=== PATIENT | male | born 1930 | race Caucasian/White ===

== ENCOUNTER → 2017-09-06 | Outpatient (CLI) | payer MEDICARE ==
[~2017-09-06] MED LIST: ADULT LOW DOSE81 MG PO; ALDACTONE50 MG PO; ASPIR 8181 MG PO; AUGMENTIN 875875 MG PO; AZITHROMYCIN 2250 MG PO; B 12 PO; CARVEDILOL12.5 MG PO; CARVEDILOL6.25 MG; CEFDINIR300 MG PO; CIPRO500 MG PO; COZAAR 25 MG TA25 M2 PO; COZAAR 50 MG TA50 M2 PO; DUONEB 2.5-0.5 M3 ML INH; ELIQUIS2.5 MG PO; ELIQUIS5 MG PO; FLOMAX0.4 MG PO; IRON325 PO; LASIX 20 MG TAB20 MG PO; METAFOLBIC TAB1 EACH PO; MIRTAZAPINE7.5 MG PO; NOHOMEMEDICATIONS; NORVASC10 MG PO; NORVASC5 MG PO; POTASSIUM20 PO; PROTONIX40 M1 PO; TOPROL XL100 MG PO; TOPROL XL50 MG PO
== END ==
LOC: M.ULTRA 10:59
DX: I25.10 Atherosclerotic heart disease of native coronary artery without angina pectoris (principal); I65.23 Occlusion and stenosis of bilateral carotid arteries; I13.0 Hypertensive heart and chronic kidney disease with heart failure and stage 1 through stage 4 chronic kidney disease, or unspecified chronic kidney disease; N18.3 Chronic kidney disease, stage 3 (moderate); E87.6 Hypokalemia; F03.90 Unspecified dementia, unspecified severity, without behavioral disturbance, psychotic disturbance, mood disturbance, and anxiety; I50.22 Chronic systolic (congestive) heart failure; K21.9 Gastro-esophageal reflux disease without esophagitis; K92.2 Gastrointestinal hemorrhage, unspecified; I48.91 Unspecified atrial fibrillation; I25.5 Ischemic cardiomyopathy; Z90.49 Acquired absence of other specified parts of digestive tract; Z87.891 Personal history of nicotine dependence; Z98.890 Other specified postprocedural states

== ENCOUNTER 2018-04-15 19:47 | Inpatient (IN) | payer OTHER ==
[~2018-04-15] VITALS: Ht 182.9 cm; Wt 76.7 kg
[~2018-04-15 19:47] MED LIST changes: -AZITHROMYCIN 2250 MG PO; -CEFDINIR300 MG PO; -FLOMAX0.4 MG PO; -METAFOLBIC TAB1 EACH PO; -TOPROL XL100 MG PO
[2018-04-15 20:07] VITALS: BP 165/86
[2018-04-15 20:37] LABS: ABSOLUTE BASOPHILS 0.1 thou/uL (0.0-0.2); ABSOLUTE EOSINOPHILS 0.2 thou/uL (0.0-0.7); ABSOLUTE LYMPHOCYTES 0.7 thou/uL (0.8-5.3); ABSOLUTE MONOCYTES 0.7 thou/uL (0.0-1.2); ABSOLUTE NEUTROPHILS 4.9 thou/uL (1.6-8.1); BASOPHILS 1.2 %; EOSINOPHILS 3.3 %; HEMATOCRIT 31.6 % (42.0-52.0); HEMOGLOBIN 9.4 gm/dL (14.0-18.0); LYMPHOCYTES 10.4 %; MCHC 29.9 g/dL (28.0-37.0); MCV 67.1 fL (80.0-100.0); MONOCYTES 11.3 %; MPV 8.3 fl. (7.2-11.1); NUCLEATED RBCS 0 /100WBC; PLATELET COUNT* 222 thou/uL (150-400); POLYS 73.8 %; RBC 4.71 mil/uL (4.50-6.00); RDW-CV 18.1 % (10.5-14.5); WBC 6.6 thou/uL (4.0-11.0)
[2018-04-15 20:42] LABS: CALCIUM 8.4 mg/dL (8.5-10.1); CREATININE 1.8 mg/dL (0.6-1.3); POTASSIUM 3.1 mmol/L (3.5-5.1)
[2018-04-15 20:57] LABS: ALBUMIN 3.8 g/dL (3.4-5.0); TOTAL BILIRUBIN 0.6 mg/dL (<0.1-1.0); TOTAL PROTEIN 7.8 g/dL (6.4-8.2)
[2018-04-15 21:52] LABS: URINE BILIRUBIN NEGATIVE (Negative); URINE BLOOD NEGATIVE (Negative); URINE CLARITY CLEAR; URINE COLOR YELLOW; URINE GLUCOSE-RANDOM NEGATIVE (Negative); URINE KETONES NEGATIVE (Negative); URINE NITRITE-REFLEX NEGATIVE (Negative); URINE PROTEIN TRACE (Negative); URINE UROBILINOGEN 0.2 E.U./dl (0.2-1.0)
[2018-04-15 21:55] LABS: ANISOCYTOSIS 1+; HYPOCHROMASIA 2+; MICROCYTES 3+; OVALOCYTES Occasional
[2018-04-15 21:56] LABS: URINE LEUKOCYTES-REFLEX 2+ (Negative)
[2018-04-15 21:56] LABS: PLATELET ESTIMATE ADEQUATE
[2018-04-15 22:08] LABS: HYALINE CASTS 0-3 Few /LPF (None Seen); MUCUS 4-6 Moderate strn/LPF (None Seen); SQUAMOUS 0-3 Few /LPF (0-3)
[2018-04-15 22:09] LABS: CRYSTALS None Seen /LPF (None Seen); URINE RBC 0-2 Rare /HPF (0-2); URINE WBC-REFLEX 6-15 Few /HPF (0-5)
[2018-04-15 23:24] VITALS: BP 150/88
[2018-04-15 23:43] VITALS: BP 172/79
[2018-04-16 04:00] VITALS: BP 168/87
[2018-04-16 05:06] LABS: HEMATOCRIT 28.1 % (42.0-52.0); HEMOGLOBIN 8.5 gm/dL (14.0-18.0); MCH 20.3 pg (26.0-34.0); MCHC 30.1 g/dL (28.0-37.0); MCV 67.3 fL (80.0-100.0); MPV 8.9 fl. (7.2-11.1); RBC 4.17 mil/uL (4.50-6.00); RDW-CV 18.2 % (10.5-14.5)
[2018-04-16 05:21] LABS: ALBUMIN 3.4 g/dL (3.4-5.0); CREATININE 1.6 mg/dL (0.6-1.3); POTASSIUM 3.7 mmol/L (3.5-5.1); TOTAL BILIRUBIN 0.6 mg/dL (<0.1-1.0); TOTAL PROTEIN 6.6 g/dL (6.4-8.2)
[2018-04-16 08:00] VITALS: BP 181/92
[2018-04-16 11:59] VITALS: BP 158/85
[2018-04-16 16:00] VITALS: BP 171/87
[2018-04-16 20:00] VITALS: BP 156/83
[2018-04-17] VITALS: BP 137/98; BP 140/61
[2018-04-17 00:48] LABS: % SATURATION 4 % (20-39); IRON 15 ug/dL (50-175)
[2018-04-17 07:54] VITALS: BP 161/102
[2018-04-17 10:49] VITALS: BP 158/88; BP 161/102
--- NOTE | 2018-04-17 11:40 | EKG ---
[place] [address] ELECTROCARDIOGRAM REPORT Name: RENEE LAMAS Room: [address] ADM IN M.R.#: [id number] Admission: 04/15/18 Attend Phys: Maricruz Hawkins Discharge: Date of : 34 Report #: [id number] THIS REPORT FOR: //name// [facility] Test Date: 2018-04-17 Test Time: 08:20:49 Pat Name: RENEE LAMAS Department: Room: [address] Gender: M Rn Clinical Review: : 1930 Requested By: Michael Durand Order Number: [id number] Reading MD: Win Cordova Measurements Intervals [place] Rate: 91 P: RI: QRS: 74 QRSD: 98 T: 85 QT: 380 QTc: 468 Interpretive Statements Atrial fibrillation Nonspecific T abnormalities, lateral leads Compared to ECG 08/23/2017 04:51:06 Ventricular premature complex(es) no longer present Left ventricular hypertrophy no longer present Prolonged QT interval no longer present Electronically Signed On 04-17-2018 11:40:11 CDT by Win Cordova [email or web address] <ELECTRONICALLY SIGNED> By: Win Cordova MD, [facility] 04/17/18 1140 9 Win Cordova MD, [facility] /EPI
[2018-04-17 14:30] VITALS: BP 164/79
[2018-04-17 16:00] VITALS: BP 165/85
[2018-04-17 20:00] VITALS: BP 165/93
[2018-04-18] VITALS: BP 155/65
[2018-04-18 04:00] VITALS: BP 167/72
[2018-04-18 09:00] VITALS: BP 130/85
[2018-04-18 11:53] VITALS: BP 138/78
[2018-04-18 15:16] VITALS: BP 167/77
[2018-04-18 20:00] VITALS: BP 130/73
[2018-04-19] VITALS: BP 139/67
[2018-04-19 04:00] VITALS: BP 159/82
[2018-04-19 08:00] VITALS: BP 161/88
[2018-04-19 08:43] LABS: HEMATOCRIT 31.8 % (42.0-52.0); HEMOGLOBIN 9.6 gm/dL (14.0-18.0); MCH 20.5 pg (26.0-34.0); MCHC 30.2 g/dL (28.0-37.0); MCV 67.8 fL (80.0-100.0); MPV 8.7 fl. (7.2-11.1); RBC 4.69 mil/uL (4.50-6.00); RDW-CV 18.8 % (10.5-14.5); WBC 5.3 thou/uL (4.0-11.0)
[2018-04-19 08:54] LABS: CALCIUM 8.3 mg/dL (8.5-10.1); CREATININE 1.4 mg/dL (0.6-1.3); MAGNESIUM 1.8 mg/dL (1.8-2.4); PHOSPHORUS* 2.3 mg/dL (2.5-4.9); POTASSIUM 3.9 mmol/L (3.5-5.1)
[2018-04-19 11:51] VITALS: BP 103/70
[2018-04-19 16:00] VITALS: BP 104/66
[2018-04-19 20:00] VITALS: BP 166/89
[2018-04-20 04:00] VITALS: BP 162/82
[2018-04-20 08:00] VITALS: BP 162/83
[2018-04-20 12:00] VITALS: BP 149/77
[2018-04-20 14:00] VITALS: BP 136/74
[2018-04-20 20:00] VITALS: BP 118/88
[2018-04-21 05:00] LABS: HEMATOCRIT 31.3 % (42.0-52.0); HEMOGLOBIN 9.5 gm/dL (14.0-18.0); MCH 20.3 pg (26.0-34.0); MCHC 30.3 g/dL (28.0-37.0); MPV 9.4 fl. (7.2-11.1); RBC 4.68 mil/uL (4.50-6.00); RDW-CV 18.7 % (10.5-14.5); WBC 6.7 thou/uL (4.0-11.0)
[2018-04-21 05:22] LABS: ALBUMIN 2.9 g/dL (3.4-5.0); CALCIUM 7.7 mg/dL (8.5-10.1); CREATININE 1.3 mg/dL (0.6-1.3); MAGNESIUM 1.8 mg/dL (1.8-2.4); POTASSIUM 3.4 mmol/L (3.5-5.1); TOTAL BILIRUBIN 0.6 mg/dL (<0.1-1.0); TOTAL PROTEIN 6.6 g/dL (6.4-8.2)
[2018-04-21 09:00] VITALS: BP 148/75
[2018-04-21 16:00] VITALS: BP 132/66
[2018-04-21 20:00] VITALS: BP 119/62
[2018-04-22 05:31] LABS: HEMATOCRIT 32.6 % (42.0-52.0); MCH 20.2 pg (26.0-34.0); MCHC 30.6 g/dL (28.0-37.0); MCV 66.1 fL (80.0-100.0); MPV 9.2 fl. (7.2-11.1); RBC 4.93 mil/uL (4.50-6.00); RDW-CV 18.9 % (10.5-14.5); WBC 6.2 thou/uL (4.0-11.0)
[2018-04-22 05:57] LABS: CALCIUM 8.2 mg/dL (8.5-10.1); CREATININE 1.4 mg/dL (0.6-1.3); MAGNESIUM 2.3 mg/dL (1.8-2.4); PHOSPHORUS* 3.1 mg/dL (2.5-4.9); POTASSIUM 3.9 mmol/L (3.5-5.1)
[2018-04-22 07:30] VITALS: BP 155/97
--- NOTE | 2018-04-22 07:55 | PATH ---
[address] [address] PATHOLOGY RPT PROCEDURE Name: RENEE LAMAS Room: [address] IN M.R.#: [id number] Admission: 04/15/18 Date of : 34 Discharge: Report #: [id number] Path Case #: [id number] [facility] Accession Number: [id number] . 01 Material submitted: . PART A: DUODENAL BIOPSY PART B: TRANSVERSE COLON MASS . 01 Clinical history: . Left lower quadrant pain . 02 Diagnosis: A. Duodenal biopsy: - Non-specific severe active duodenitis with erosion, negative for granulomas and dysplasia. . B. TRANSVERSE COLON MASS: - COLONIC ADENOCARCINOMA, MODERATELY DIFFERENTIATED. SEE COMMENT. LBQ/04/18/2018 . 02 Comment: Specimen B reviewed with Dr. Marielos Paulino who agrees with the diagnosis. Dr. Durand notified at approximately 1540 on 04/18/2018. (TAHIR/db; 04/18/18) . 02 Electronically signed: . Phill Duran MD, Pathologist NPI- [id number] . 01 Gross description: . A. Received in formalin labeled "Ra Renee, duodenal BX," are 2 segments of osorio soft tissue measuring 0.9 x 0.3 x 0.2 cm in aggregate dimensions and ranging from 0.4 to 0.5 cm in maximum dimension. The specimen is submitted entirely in cassette A1. . B. Received in formalin labeled "Ra Renee, transverse colon BX," are 3 segments of osorio soft tissue measuring 0.9 x 0.6 x 0.2 cm in aggregate dimensions and ranging from 0.3 to 0.5 cm in maximum dimension. The specimen is submitted entirely in cassette B1. (TSD; 04/17/2018) TOB/TOB . 02 Pathologist provided ICD-10: C18.4, L57.0, K26.9 . 02 CPT . 944931, 038794 Performed at: 01 [place] [address] PATHOLOGY RPT PROCEDURE Name: RENEE LAMAS Room: [address] IN M.R.#: [id number] Admission: 04/15/18 Date of : 32 Discharge: Report #: [id number] Path Case #: [id number] [facility], [place], [place] [id number] MD Romain Beach MD Phone: [phone] Performed at: 02 [facility] [address], [place], [place] [id number] MD Phill Duran MD Phone: [phone]
[2018-04-22 21:28] VITALS: BP 159/65
[2018-04-23] VITALS (7 sets, daily range): BP systolic 110–168; BP diastolic 52–95
[2018-04-23 04:18] LABS: HEMATOCRIT 33.2 % (42.0-52.0); HEMOGLOBIN 9.9 gm/dL (14.0-18.0); MCH 20.2 pg (26.0-34.0); MCHC 29.9 g/dL (28.0-37.0); MCV 67.3 fL (80.0-100.0); MPV 9.4 fl. (7.2-11.1); NUCLEATED RBCS 0 /100WBC; PLATELET COUNT* 199 thou/uL (150-400); RBC 4.93 mil/uL (4.50-6.00); RDW-CV 18.6 % (10.5-14.5); WBC 9.2 thou/uL (4.0-11.0)
[2018-04-23 04:36] LABS: CALCIUM 8.2 mg/dL (8.5-10.1); CREATININE 1.4 mg/dL (0.6-1.3); POTASSIUM 4.1 mmol/L (3.5-5.1)
[2018-04-23 05:57] LABS: ABSOLUTE LYMPHOCYTES 0.5 thou/uL (0.8-5.3); ABSOLUTE MONOCYTES 0.2 thou/uL (0.0-1.2); ABSOLUTE NEUTROPHILS 8.6 thou/uL (1.6-8.1); PLATELET ESTIMATE ADEQUATE
[2018-04-23 05:59] LABS: ANISOCYTOSIS 2+; HYPOCHROMASIA 1+; MICROCYTES 2+; POIKILOCYTOSIS 1+
[2018-04-24] VITALS: BP 153/83
[2018-04-24 04:00] VITALS: BP 157/66
[2018-04-24 05:37] LABS: ABSOLUTE EOSINOPHILS 0.1 thou/uL (0.0-0.7); ABSOLUTE LYMPHOCYTES 0.9 thou/uL (0.8-5.3); ABSOLUTE MONOCYTES 0.9 thou/uL (0.0-1.2); ABSOLUTE NEUTROPHILS 5.4 thou/uL (1.6-8.1); BASOPHILS 0.5 %; HEMATOCRIT 29.2 % (42.0-52.0); HEMOGLOBIN 8.9 gm/dL (14.0-18.0); MCH 20.3 pg (26.0-34.0); MCHC 30.4 g/dL (28.0-37.0); MCV 66.9 fL (80.0-100.0); MONOCYTES 11.9 %; MPV 9.1 fl. (7.2-11.1); NUCLEATED RBCS 0 /100WBC; PLATELET COUNT* 191 thou/uL (150-400); POLYS 74.6 %; RBC 4.37 mil/uL (4.50-6.00); WBC 7.3 thou/uL (4.0-11.0)
[2018-04-24 05:50] LABS: MAGNESIUM 2.2 mg/dL (1.8-2.4); PHOSPHORUS* 3.3 mg/dL (2.5-4.9)
[2018-04-24 06:04] LABS: ALBUMIN 2.6 g/dL (3.4-5.0); CREATININE 1.5 mg/dL (0.6-1.3); POTASSIUM 3.8 mmol/L (3.5-5.1); TOTAL BILIRUBIN 0.3 mg/dL (<0.1-1.0); TOTAL PROTEIN 5.8 g/dL (6.4-8.2)
[2018-04-24 08:00] VITALS: BP 146/93
[2018-04-24 12:42] VITALS: BP 117/54
[2018-04-24 15:54] VITALS: BP 120/52
[2018-04-24 20:40] VITALS: BP 112/79
[2018-04-25] VITALS: BP 151/76
[2018-04-25 04:00] VITALS: BP 151/79
[2018-04-25 07:37] LABS: HEMATOCRIT 28.9 % (42.0-52.0); HEMOGLOBIN 8.8 gm/dL (14.0-18.0); MCH 20.4 pg (26.0-34.0); MCHC 30.6 g/dL (28.0-37.0); MCV 66.8 fL (80.0-100.0); MPV 8.9 fl. (7.2-11.1); RBC 4.32 mil/uL (4.50-6.00); RDW-CV 19.1 % (10.5-14.5); WBC 5.7 thou/uL (4.0-11.0)
[2018-04-25 07:49] LABS: CALCIUM 8.1 mg/dL (8.5-10.1); CREATININE 1.5 mg/dL (0.6-1.3); PHOSPHORUS* 2.7 mg/dL (2.5-4.9); POTASSIUM 3.8 mmol/L (3.5-5.1)
[2018-04-25 08:00] VITALS: BP 134/83
[2018-04-25 13:05] VITALS: BP 126/66
[2018-04-25 16:00] VITALS: BP 128/68; BP 134/68
[2018-04-25 20:00] VITALS: BP 141/58
[2018-04-26] VITALS (7 sets, daily range): BP systolic 128–162; BP diastolic 69–99
[2018-04-26 04:49] LABS: HEMATOCRIT 27.9 % (42.0-52.0); HEMOGLOBIN 8.5 gm/dL (14.0-18.0); MCH 20.4 pg (26.0-34.0); MCHC 30.5 g/dL (28.0-37.0); MCV 66.7 fL (80.0-100.0); MPV 9.2 fl. (7.2-11.1); RBC 4.18 mil/uL (4.50-6.00); RDW-CV 19.3 % (10.5-14.5); WBC 5.7 thou/uL (4.0-11.0)
[2018-04-26 05:10] LABS: CALCIUM 7.8 mg/dL (8.5-10.1); CREATININE 1.3 mg/dL (0.6-1.3); MAGNESIUM 1.9 mg/dL (1.8-2.4); PHOSPHORUS* 2.4 mg/dL (2.5-4.9); POTASSIUM 3.9 mmol/L (3.5-5.1)
[2018-04-26 11:21] LABS: CALCIUM 8.2 mg/dL (8.5-10.1); CREATININE 1.3 mg/dL (0.6-1.3); MAGNESIUM 1.8 mg/dL (1.8-2.4)
[2018-04-27] VITALS: BP 144/82
[2018-04-27 04:00] VITALS: BP 167/77
[2018-04-27 04:21] LABS: HEMATOCRIT 28.7 % (42.0-52.0); HEMOGLOBIN 8.8 gm/dL (14.0-18.0); MCH 20.6 pg (26.0-34.0); MCHC 30.5 g/dL (28.0-37.0); MCV 67.5 fL (80.0-100.0); MPV 8.9 fl. (7.2-11.1); RBC 4.25 mil/uL (4.50-6.00); RDW-CV 19.2 % (10.5-14.5)
[2018-04-27 04:54] LABS: CREATININE 1.3 mg/dL (0.6-1.3); MAGNESIUM 1.9 mg/dL (1.8-2.4); PHOSPHORUS* 2.1 mg/dL (2.5-4.9); POTASSIUM 4.2 mmol/L (3.5-5.1)
[2018-04-27 08:00] VITALS: BP 170/94
[2018-04-27 12:00] VITALS: BP 158/88
[2018-04-27 16:00] VITALS: BP 173/97
[2018-04-27 20:00] VITALS: BP 149/86
[2018-04-28] VITALS: BP 129/70
[2018-04-28 04:00] VITALS: BP 146/67
[2018-04-28 04:51] LABS: HEMATOCRIT 30.4 % (42.0-52.0); HEMOGLOBIN 9.2 gm/dL (14.0-18.0); MCH 20.4 pg (26.0-34.0); MCHC 30.2 g/dL (28.0-37.0); MCV 67.5 fL (80.0-100.0); MPV 8.8 fl. (7.2-11.1); RBC 4.5 mil/uL (4.50-6.00); RDW-CV 19.3 % (10.5-14.5); WBC 7.1 thou/uL (4.0-11.0)
[2018-04-28 05:33] LABS: CALCIUM 8.2 mg/dL (8.5-10.1); CREATININE 1.3 mg/dL (0.6-1.3); MAGNESIUM 1.9 mg/dL (1.8-2.4); PHOSPHORUS* 2.8 mg/dL (2.5-4.9); POTASSIUM 4.3 mmol/L (3.5-5.1)
[2018-04-28 07:58] VITALS: BP 144/82
[2018-04-28 12:11] VITALS: BP 109/51
[2018-04-28 16:23] VITALS: BP 148/61
[2018-04-28 20:15] VITALS: BP 133/71
[2018-04-29] VITALS (9 sets, daily range): BP systolic 107–167; BP diastolic 58–108
[2018-04-29 05:14] LABS: HEMATOCRIT 27.1 % (42.0-52.0); HEMOGLOBIN 8.3 gm/dL (14.0-18.0); MCH 20.5 pg (26.0-34.0); MCHC 30.5 g/dL (28.0-37.0); MCV 67.1 fL (80.0-100.0); MPV 9.1 fl. (7.2-11.1); RBC 4.04 mil/uL (4.50-6.00); RDW-CV 19.1 % (10.5-14.5); WBC 5.5 thou/uL (4.0-11.0)
[2018-04-29 05:34] LABS: CALCIUM 7.9 mg/dL (8.5-10.1); CREATININE 1.4 mg/dL (0.6-1.3); MAGNESIUM 1.9 mg/dL (1.8-2.4); PHOSPHORUS* 2.6 mg/dL (2.5-4.9); POTASSIUM 4.2 mmol/L (3.5-5.1)
[2018-04-29] MEDS ORDERED: FLOMAX0.4 MG PO (14:37)
--- NOTE | 2018-04-30 16:08 | PATH ---
[address] [address] PATHOLOGY RPT PROCEDURE Name: RENEE LAMAS Room: [address] IN M.R.#: [id number] Admission: 04/15/18 Date of : 32 Discharge: 04/29/18 Report #: [id number] Path Case #: [id number] [facility] Accession Number: [id number] . 01 Material submitted: . TRANSVERSE COLON, PARTIAL OMENTECTOMY-STITCH ON PROXIMAL END . 01 Clinical history: . Colon cancer . 02 Diagnosis: Transverse colon, partial omentectomy: - ULCERATED, NEAR-CIRCUMFERENTIAL, COLONIC ADENOCARCINOMA, FORMING A MASS MEASURING 3.1 X 2.9 CM, WITH INVASION FOCALLY THROUGH MUSCULARIS PROPRIA INTO PERICOLIC FAT, WITHOUT INVOLVEMENT OF INKED SEROSAL SURFACE, WITH ALL SURGICAL MARGINS FREE OF INVOLVEMENT. - One of nine (1/9) pericolic lymph nodes with metastatic adenocarcinoma (1/9). - Benign omental fat. - Two benign colonic anastomotic rings. See comment. . (TAHIR:mmángela; 04/28/18) QLM/04/28/2018 . 02 Comment: The tumor is seen to slightly traverse the muscularis propria and extend into the pericolic fat in A5. . . SYNOPTIC DATA: . Procedure Transverse colectomy . Tumor Site Transverse colon . Tumor Size Greatest dimension (centimeters): 3.1 cm . Macroscopic Tumor Perforation Not identified . Histologic Type Adenocarcinoma . Histologic Grade G2: [place] [address] PATHOLOGY RPT PROCEDURE Name: RENEE LAMAS Room: [address] IN [facility]#: [id number] Admission: 04/15/18 Date of : 32 Discharge: 04/29/18 Report #: [id number] Path Case #: [id number] . Tumor Extension Tumor invades through the muscularis propria into pericolorectal tissue . Margins All margins are uninvolved by invasive carcinoma, high-grade dysplasia, intramucosal adenocarcinoma, and adenoma Margins examined: Proximal, distal, mesenteric + Distance of invasive carcinoma from closest margin: 2.2 cm + Specify closest margin: Distal . Treatment Effect No known presurgical therapy . . Lymphovascular Invasion Not identified . Perineural Invasion Not identified . Tumor Budding + Number of tumor buds in 1 "hotspot" field (total number in area = 0.785 mm2): 1 + Low score (0-4) . Type of Polyp in Which Invasive Carcinoma Arose: Tubular adenoma . Tumor Deposits Not identified . Regional Lymph Nodes Number of Lymph Nodes Involved: 1 Number of Lymph Nodes Examined: 9 . Pathologic Stage Classification (pTNM, AJCC 8th Edition) . Primary Tumor (pT) pT3:Tumor invades through the muscularis propria into pericolorectal tissues . Regional Lymph Nodes (pN) pN1:One to three regional lymph nodes are positive . . If MSI / MMR testing is desired, it can be subsequently requested on any of blocks A3-A7. A[address] Marielos Paulino who agrees with the diagnosis[place] [address] PATHOLOGY RPT PROCEDURE Name: RENEE LAMAS Room: [address] IN [facility]#: [id number] Admission: 04/15/18 Date of : 32 Discharge: 04/29/18 Report #: [id number] Path Case #: [id number] (TAHIR:[facility]; 04/28/18) . 02 Electronically signed: . Phill Duran MD, Pathologist NPI- [id number] . 01 Gross description: . The specimen is received in formalin, labeled "Renee Lamas, transverse colon, stitch on proximal end, omentectomy, partial" and consists of an oriented segment of intestine measuring 9.1 cm in length and 3.8 cm in diameter with a stitch designating the proximal end. Both margins are closed with radha and the pericolic fat measures up to 5.8 cm. The serosa displays a "pinched area" (1.4 x 1.2 cm) with surrounding tattoo ink. The pinched area extends 2.7 cm from the distal margin and 4.0 cm from the proximal margin and is inked black. The mesenteric margin is inked blue and the specimen is opened longitudinally to reveal a near circumferential, pink-osorio, and ulcerated/fungating mass with rolled edges (3.1 x 2.9 cm) which is located 2.6 cm away from the proximal margin and 2.2 cm away from the distal margin. The lumen measures up to 3.0 cm and narrows to less than 1 cm at the mass. Sectioning reveals the mass obliterates the muscular wall and shows possible extension into the pericolic fat to a maximum depth of 0.2 cm and extends 5.6 cm from the mesenteric margin. The mucosa proximal to mass is flattened with reduced folds while the mucosa distal the mass is slightly flattened with unremarkable transverse folds. No additional masses or lesions are identified. The pericolic fat is sectioned and placed in clearing solution to reveal multiple lymph node candidates ranging from 0.2 x 0.2 cm to 0.9 x 0.5 cm. . Also received in the container is omentum (25.0 x 11.3 x 1.4 cm) and sectioning reveals no nodules or mass lesions. Also received are 2 segments of colonic mucosa (anastomotic rings) measuring 4.3 x 1.3 x 0.8 cm and 1.5 x 1.1 x 0.5 cm with the smaller ring containing multiple radha. Sections are submitted as follows: . A1: Proximal margin A2: Distal margin A3-A4: Mass in relation to the "pinched serosa" A5: Mass, greatest depth of invasion A6-A7: Additional retail field representative mass A8: Mesenteric margin, perpendicular A9: Mucosa proximal to mass A10: Mucosa distal to mass A11: Omentum A12: Additional mucosa/anastomotic rings A13: 2 lymph nodes candidates bisected, one inked black A14: 2 lymph nodes candidates bisected, one inked black A15: Multiple intact lymph node candidates A16: Largest lymph node [place] [address] PATHOLOGY RPT PROCEDURE Name: RENEE LAMAS Room: [address] IN ..#: [id number] Admission: 04/15/18 Date of : 32 Discharge: 04/29/18 Report #: [id number] Path Case #: [id number] (SDY; 04/23/2018) . After additional microscopic examination, the fat is further examined to reveal two lymph node candidates measuring 0.5 cm and 0.6 cm. They are submitted along with vascular bundles as follows: . A17: Two lymph node candidates, one inked black and bisected A18-A22: Vascular bundles (CTY; 04/24/2018) SYU/SYU . 02 Pathologist provided ICD-10: C18.4, C77.2 . 02 CPT . 901683, 844269 Performed at: 01 [facility] [address] [facility] [facility] [address], [place] [id number] MD Romain Beach MD Phone: [phone] Performed at: 02 [facility] [place] [address], [place], [place] [id number] MD Phill Duran MD Phone: [phone]
--- NOTE | 2018-05-06 10:19 | OP ---
[address] [address] OPERATIVE REPORT Name: RENEE LAMAS Room: [address] IN .R.#: [id number] Admission: 04/15/18 Attend Phys: Maricruz Hawkins Discharge: 04/29/18 Date of : 32 Report #: [id number] THIS REPORT FOR: //name// CC: [facility] physician/PCP Osito Bellamy DICTATED BY: Bridger Cerrato DO PREOPERATIVE DIAGNOSIS: Adenocarcinoma of the transverse colon. POSTOPERATIVE DIAGNOSIS: Adenocarcinoma of the transverse colon. SURGEON: Azael Carvalho DO PRICING CLERK: Bridger Cerrato DO, PGY2 OPERATION PERFORMED: Diagnostic laparoscopy converted to laparotomy with transverse colectomy and partial omentectomy. FINDINGS: Proximal and distal tattoo from previous colonoscopy, firm mass within the mid transverse colon between the tattoo margins, minimal adhesions. ANESTHESIA TYPE: General. ESTIMATED BLOOD LOSS: 20 mL. SPECIMEN REMOVED: Transverse colon and omentum. COMPLICATIONS: None. DISPOSITION: PACU to the floor. HISTORY OF PRESENT ILLNESS: The patient is a pleasant 87-year-old male who was initially admitted after complaints of diffuse abdominal pain and diarrhea. These symptoms were similar to his prior colectomy before that time. On further workup, colonoscopy did show a malignant partially obstructing tumor in the mid transverse colon that was biopsied and tattooed. Pathology did reveal that the malignant-appearing tumor was in fact a colonic adenocarcinoma, moderately differentiated. It was discussed with the patient that the recommendation at this time would be to do a partial resection of the transverse colon to include the mass and reanastomosis. Risks and complications were discussed to include bleeding, infection, injury to surrounding structures, risk of anesthesia, risk of cancer recurrence. He acknowledged understanding and agreed to proceed with surgery. DESCRIPTION OF PROCEDURE: After consent was obtained, the patient was taken to the operating room and placed in the supine position. [place] [address] OPERATIVE REPORT Name: RENEE LAMAS Room: [address]#: [id number] Admission: 04/15/18 Attend Phys: Maricruz Hawkins Discharge: 04/29/18 Date of : 32 Report #: [id number] regimen of ciprofloxacin and Flagyl and therefore prophylactic antibiotics were not given. SCDs were applied to bilateral lower extremities. A safety belt was placed across the patient's waist. General anesthesia was then administered without any complication. The patient's feet were placed in holsters. Safety strap was placed across the patient's chest and he was secured to the table. The patient was then prepped and draped in the standard sterile fashion. Timeout was performed to confirm the patient and procedure. Initially the case started out laparoscopically. A small incision was made supraumbilically in a vertical fashion. Electrocautery was used for hemostasis and to dissect down to the level of the fascia. The fascia was scored, elevated between 2 Kochers. Two stitches of 0 Vicryl in a [id number]-er-phdpl fashion were placed on either side of the incision. A 10 mm Carmel was then inserted in the abdomen. Camera was inserted after insufflation was initiated. Intra-abdominal contents were inspected. You could see two large spots of tattoo on the antimesenteric border of the transverse colon. This led us to believe that the tumor itself was in between these 2 areas of tattoo. The tattoo was extremely mobile and redundant and it was felt that it would be easier to extend the midline incision and proceed with an open colectomy. Before this happened though, 2 more ports, one in the right lower quadrant and one in the suprapubic area were inserted under direct visualization. These were both 5 mm ports. Some intra-abdominal adhesions were taken down with the hook electrocautery. After this was done, the camera was removed from the abdomen. Insufflation was let down. The midline incision was extended along the previous colectomy incision. The transverse colon was pulled up through the incision after a wound protector was placed along the incision. Transverse colon was pulled up through the incision and the mass could be easily palpated between the two areas of tattoo. The patient was very lean and mesentery was very vascular, it was easy to see the middle colic artery traversing up to the level of the tumor. It was decided that the middle colic artery itself would need to be taken. A small incision was made in the mesentery using electrocautery. The LigaSure Impact was used to dissect up to the level of the bowel. A LICHA-80 was used to staple across the transverse colon just lateral to the mass. Another incision was made in the mesentery on the other side of the lesion with electrocautery and again this was extended up to the level of the bowel with LigaSure Impact. Another LICHA-80 load was used to staple this bowel. Segment of bowel that was removed was a roughly 10 cm. The remaining mesentery was dissected out using LigaSure Impact. Complete hemostasis was ensured. After palpating the rest of the colon, there was no more masses that could be felt. There was bleeding from both staple lines indicating good blood flow to the staple lines. At this point, attention was turned to some of the omentum as there were multiple attachments to the bowel and it was suspected that this could lead to a hernia in the future. Therefore, a partial omentectomy was performed using LigaSure Impact. Now attention was turned back to the bowel. Edges of either end of the transverse colon were grasped with an Allis clamp and a heavy curved Galo was used to make a small enterotomy on either side of the transverse colon. Allis clamps were placed on either side of the bowel and elevated. [place] [address] OPERATIVE REPORT Name: RENEE LAMAS Room: [address]#: [id number] Admission: 04/15/18 Attend Phys: Maricruz Hawkins Discharge: 04/29/18 Date of : 32 Report #: [id number] side of the transverse colon, connected, staple was fired and the anastomosis looked to be patent at that time. A TA 60 was placed across the transverse colon and fired, ensuring an adequate anastomosis. Fluid was easily passing within the bowel at this point and there was no evidence of stricture or leak. The antimesenteric part of the bowel was then closed with 2-0 Vicryl in an interrupted fashion to ensure no future internal hernia. The mesenteric side was closed with a running stitch of 2-0 Vicryl, again to ensure no hernia postoperatively. The anastomosis was then reinspected and it was fully patent. There was no evidence of leak. The area was irrigated with normal saline and at this point the supraumbilical fascia was closed with a running stitch of #1 looped PDS. Subcutaneous tissue over top was closed with a 2-0 Vicryl in a simple interrupted fashion. All skin incisions were closed with a 4-0 Monocryl. Sterile dressings were placed over top. All counts at the end of the case were correct. The patient was then awoken from anesthesia without any complication. The patient tolerated the procedure well and was transferred to PACU in stable condition with plans to return to the floor. <ELECTRONICALLY SIGNED> By: Azael Carvalho DO 05/06/18 1019 1343 1530Adam Virginia Carvalho DO /nt
== END 2018-04-29 16:58 | disposition home health service (06) | DRG 329 ==
LOC: M.ERS 19:47 → M.2W 22:57 → M.TBA-ER 22:57 → M.2W 23:07 → M.ORTHSURG 04-20 12:34 → M.2W 04-22 15:29
PROVIDERS: Emergency Medicine; Family Medicine; Internal Medicine; Internal Medicine Gastroenterology; Surgery; ADMIT Internal Medicine
PROC: 0DBL8ZX Excision of Transverse Colon, Via Natural or Artificial Opening Endoscopic, Diagnostic (ICD-10-PCS; principal; 2018-04-17)
PROC: 0DBU0ZZ Excision of Omentum, Open Approach (ICD-10-PCS; 2018-04-22)
PROC: 0DTL0ZZ Resection of Transverse Colon, Open Approach (ICD-10-PCS; 2018-04-22)
PROC: 0WJP4ZZ Inspection of Gastrointestinal Tract, Percutaneous Endoscopic Approach (ICD-10-PCS; 2018-04-22)
DX: C18.4 Malignant neoplasm of transverse colon (principal); G93.40 Encephalopathy, unspecified; A04.9 Bacterial intestinal infection, unspecified; N17.9 Acute kidney failure, unspecified; I13.0 Hypertensive heart and chronic kidney disease with heart failure and stage 1 through stage 4 chronic kidney disease, or unspecified chronic kidney disease; I48.91 Unspecified atrial fibrillation; K80.20 Calculus of gallbladder without cholecystitis without obstruction; I50.9 Heart failure, unspecified; N18.3 Chronic kidney disease, stage 3 (moderate); F03.90 Unspecified dementia, unspecified severity, without behavioral disturbance, psychotic disturbance, mood disturbance, and anxiety; D50.9 Iron deficiency anemia, unspecified; K64.8 Other hemorrhoids; D12.0 Benign neoplasm of cecum; E83.39 Other disorders of phosphorus metabolism; R33.9 Retention of urine, unspecified; E87.6 Hypokalemia; Z79.82 Long term (current) use of aspirin; Z79.899 Other long term (current) drug therapy; Z53.31 Laparoscopic surgical procedure converted to open procedure

== ENCOUNTER 2018-07-15 10:33 | Inpatient (IN) | payer OTHER ==
[~2018-07-15] VITALS: Ht 182.9 cm; Wt 61.7 kg
[~2018-07-15 10:33] MED LIST changes: +FLOMAX0.4 MG PO
[2018-07-15 10:50] VITALS: BP 150/86
[2018-07-15] MEDS ORDERED: TOPROL XL100 MG PO (10:59)
[2018-07-15 11:11] LABS: ABSOLUTE BASOPHILS 0.1 thou/uL (0.0-0.2); ABSOLUTE EOSINOPHILS 0.1 thou/uL (0.0-0.7); ABSOLUTE LYMPHOCYTES 0.6 thou/uL (0.8-5.3); ABSOLUTE MONOCYTES 0.4 thou/uL (0.0-1.2); ABSOLUTE NEUTROPHILS 3.1 thou/uL (1.6-8.1); BASOPHILS 2.3 %; EOSINOPHILS 2.7 %; HEMATOCRIT 29.1 % (42.0-52.0); HEMOGLOBIN 8.8 gm/dL (14.0-18.0); LYMPHOCYTES 13.3 %; MCH 20.5 pg (26.0-34.0); MCHC 30.1 g/dL (28.0-37.0); MCV 68.1 fL (80.0-100.0); MONOCYTES 10.3 %; MPV 8.9 fl. (7.2-11.1); NUCLEATED RBCS 0 /100WBC; PLATELET COUNT* 179 thou/uL (150-400); POLYS 71.4 %; RBC 4.27 mil/uL (4.50-6.00); RDW-CV 18.5 % (10.5-14.5); WBC 4.3 thou/uL (4.0-11.0)
[2018-07-15 11:23] LABS: ANION GAP 8 mmol/L (7-16); BUN 26 mg/dL (7-18); CALCIUM 8.7 mg/dL (8.5-10.1); CHLORIDE 102 mmol/L (98-107); CO2 34 mmol/L (21-32); CREATININE 1.8 mg/dL (0.6-1.3); GLUCOSE 110 mg/dL (70-99); SODIUM 144 mmol/L (136-145)
[2018-07-15 11:34] LABS: ALBUMIN 3.2 g/dL (3.4-5.0); ALKALINE PHOSPHATASE 108 U/L (46-116); NT-PRO BRAIN NAT PEPTIDE 15821 pg/mL (<300); SGOT 22 U/L (15-37); SGPT 16 U/L (30-65); TOTAL BILIRUBIN 0.8 mg/dL (<0.1-1.0); TOTAL PROTEIN 7.1 g/dL (6.4-8.2); TROPONIN-I LEVEL <0.06 ng/mL (<0.06)
[2018-07-15 12:18] LABS: PLATELET ESTIMATE ADEQUATE
[2018-07-15 12:19] LABS: HYPOCHROMASIA 2+; MICROCYTES 2+; OVALOCYTES 1+
[2018-07-15 12:20] LABS: ANISOCYTOSIS 2+; POIKILOCYTOSIS 1+
[2018-07-15 12:21] LABS: SCHISTOCYTES Occasional
[2018-07-15 12:30] LABS: URINE BILIRUBIN NEGATIVE (Negative); URINE BLOOD NEGATIVE (Negative); URINE CLARITY CLEAR; URINE COLOR YELLOW; URINE GLUCOSE-RANDOM NEGATIVE (Negative); URINE KETONES NEGATIVE (Negative); URINE LEUKOCYTES-REFLEX 1+ (Negative); URINE NITRITE-REFLEX NEGATIVE (Negative); URINE PROTEIN NEGATIVE (Negative); URINE UROBILINOGEN 0.2 E.U./dl (0.2-1.0)
[2018-07-15 12:39] LABS: SQUAMOUS NONE SEEN /LPF (0-3); URINE RBC None Seen /HPF (0-2)
[2018-07-15 12:40] LABS: BACTERIA-REFLEX 1-9 Few /HPF (None Seen); CASTS None Seen /LPF (None Seen); CRYSTALS None Seen /LPF (None Seen); MUCUS None Seen strn/LPF (None Seen)
[2018-07-15 14:45] VITALS: BP 142/105
[2018-07-15 14:56] VITALS: BP 164/75
--- NOTE | 2018-07-15 16:30 | EKG ---
[place] [address] ELECTROCARDIOGRAM REPORT Name: RENEE LAMAS Room: [address] ADM IN M.R.#: [id number] Admission: 07/15/18 Attend Phys: Maricruz Hawkins Discharge: Date of : 32 Report #: [id number] THIS REPORT FOR: //name// [facility] ED Test Date: 2018-07-15 Test Time: 10:52:49 Pat Name: RENEE LAMAS Department: Room: [address] Gender: M Pressure Vessel Inspector: Lorenzo THOMAS : 1930 Requested By: Taya Abdi Order Number: [id number] MD: Aly Avilez Measurements Intervals [place] Rate: 78 P: 158 MI: 21 QRS: 31 QRSD: 86 T: 100 QT: 430 QTc: 490 Interpretive Statements afib Probable LVH with secondary repol abnrm Anterior Q waves, possibly due to LVH Compared to ECG 04/17/2018 08:20:49 Short MI interval now present Left ventricular hypertrophy now present Q waves now present Atrial fibrillation no longer present T-wave abnormality no longer present Electronically Signed On 07-15-2018 16:30:24 CALL CENTER RN by Aly Avilez [email or web address] <ELECTRONICALLY SIGNED> By: Aly Avilez MD, FACC 07/15/18 1630 1052 1052 Aly Avilez MD, FACC /EPI
--- NOTE | 2018-07-15 17:57 | 2DMMODE ---
[place] [address] 2 D/M-MODE ECHOCARDIOGRAM Name: RENEE LAMAS Room: [address] IN [facility]#: [id number] Admission: 07/15/18 Attend Phys: Osito Bellamy Discharge: Date of : 34 Date of Service: 07/15/18 1757 Report #: [id number] THIS REPORT FOR: //name// ADDENDUM APPROVED REPORT Study performed: 07/15/2018 15:58:53 EXAM: Comprehensive 2D, Doppler, and color-flow Echocardiogram Patient Location: In-Patient Room #: [facility] Status: routine BSA: 1.79 HR: 83 bpm BP: 164/75 mmHg Rhythm: Atrial Fibrillation Other Information Study Quality: Good Indications Congestive Heart Failure Atrial Fibrillation 2D Dimensions IVSd: 13.67 (7-11mm) LVOT Diam: 21.19 (18-24mm) LVDd: 48.84 mm PWd: 11.31 (7-11mm) LVDs: 39.25 (25-40mm) Aortic Root: 31.94 mm Volumes Left Atrial Volume (Systole) LA ESV Index: 53.90 mL/m2 Aortic Valve AoV Peak Bobby.: 1.30 m/s AO Peak Gr.: 6.73 mmHg LVOT Max P.58 mmHg AO Mean Gr.: 3.54 mmHg LVOT Mean P.70 mmHg LVOT Max V: 0.63 m/s AO V2 VTI: 28.07 cm LVOT Mean V: 0.38 m/s LINO (VTI): 1.57 cm2 LVOT V1 VTI: 12.48 cm Mitral Valve MV Decel. Time: 141.77 ms MV PHT: 41.11 [place] [address] 2 D/M-MODE ECHOCARDIOGRAM Name: RENEE LAMAS Room: [address] IN .R.#: [id number] Admission: 07/15/18 Attend Phys: Osito Bellamy Discharge: Date of : 34 Date of Service: 07/15/18 1757 Report #: [id number] MVA (PHT): 5.35 cm2 TDI Medial E' Bobby.: 0.07 m/s Lateral E' Bobby.: 0.08 m/s Pulmonary Valve PV Peak Bobby.: 0.70 m/s PV Peak Gr.: 1.94 mmHg Tricuspid Valve RAP Estimate: 5.00 mmHg TR Peak Gr.: 26.45 mmHg RVSP: 31.00 mmHg PA Pressure: 31.00 mmHg Left Ventricle The left ventricle is normal size. Regional wall motion abnormalities are noted.The apex is dyskinetic.The inferior wall is severely hypokinetic. Global LV dysfunction. Mild concentric left ventricular hypertrophy. Left ventricular systolic function is normal. The left ventricular ejection fraction is within the normal range. No left ventricle thrombus noted on this study. LVEF is 30-35% This study is not technically sufficient to allow evaluation of the LV diastolic function due to atrial fibrillation. Right Ventricle The right ventricle is normal size. The right ventricular systolic function is normal. Atria Left atrium is severely dilated. The right atrium size is normal. Aortic Valve Mild aortic valve sclerosis. No aortic regurgitation is present. Mild aortic stenosis. Mitral Valve Severe mitral annular calcification.PMVL is redundant. Moderate mitral regurgitation. No evidence of mitral valve stenosis. Tricuspid Valve The tricuspid valve is normal in structure. Mild tricuspid regurgitation. Mild pulmonary hypertension. [place] [address] 2 D/M-MODE ECHOCARDIOGRAM Name: RENEE LAMAS Room: [address] IN [facility].#: [id number] Admission: 07/15/18 Attend Phys: Osito Bellamy Discharge: Date of : 34 Date of Service: 07/15/18 1757 Report #: [id number] The pulmonary valve is normal in structure. There is no pulmonic valvular regurgitation. Great Vessels The aortic root is normal in size. IVC is normal in size and collapses >50% with inspiration. Pericardium There is no pericardial effusion. Left pleural effusion. <Conclusion> LVEF is 30-35% Regional wall motion abnormalities are noted.The apex is dyskinetic. Inferior wall is severely hypokinetic.Global LV dysfunction. No left ventricle thrombus noted on this study. Left atrium is severely dilated. Mild aortic stenosis. No aortic regurgitation is present. Moderate mitral regurgitation. Mild tricuspid regurgitation. Mild pulmonary hypertension. <ELECTRONICALLY SIGNED> By: Aly Avilez MD, FACC 07/15/181756 56 56 Aly Avilez MD, FACC /INF
[2018-07-15 19:50] VITALS: BP 164/77
[2018-07-16 01:06] VITALS: BP 178/85
[2018-07-16 04:00] VITALS: BP 174/99
[2018-07-16 06:26] LABS: CALCIUM 8.6 mg/dL (8.5-10.1); CREATININE 1.6 mg/dL (0.6-1.3); MAGNESIUM 2.1 mg/dL (1.8-2.4); POTASSIUM 3.3 mmol/L (3.5-5.1)
[2018-07-16 07:50] VITALS: BP 170/100
[2018-07-16 11:28] VITALS: BP 118/72
[2018-07-16 16:00] VITALS: BP 137/72
[2018-07-16 20:10] VITALS: BP 154/74
[2018-07-17] VITALS: BP 159/100
[2018-07-17 04:00] VITALS: BP 113/81
[2018-07-17 05:12] LABS: HEMATOCRIT 33.2 % (42.0-52.0); HEMOGLOBIN 9.7 gm/dL (14.0-18.0); MCH 20.1 pg (26.0-34.0); MCHC 29.2 g/dL (28.0-37.0); MCV 68.8 fL (80.0-100.0); MPV 9.3 fl. (7.2-11.1); NUCLEATED RBCS 0 /100WBC; PLATELET COUNT* 224 thou/uL (150-400); RBC 4.83 mil/uL (4.50-6.00); RDW-CV 19.5 % (10.5-14.5); WBC 6.9 thou/uL (4.0-11.0)
[2018-07-17 07:05] LABS: ABSOLUTE BASOPHILS 0.1 thou/uL (0.0-0.2); ABSOLUTE LYMPHOCYTES 0.8 thou/uL (0.8-5.3); ABSOLUTE MONOCYTES 0.5 thou/uL (0.0-1.2); ABSOLUTE NEUTROPHILS 5.5 thou/uL (1.6-8.1); OVALOCYTES 1+
[2018-07-17 07:06] LABS: ANISOCYTOSIS 2+; HYPOCHROMASIA 2+
[2018-07-17 07:07] LABS: MICROCYTES 2+; PLATELET ESTIMATE ADEQUATE
[2018-07-17 08:00] VITALS: BP 160/95
[2018-07-17 12:00] VITALS: BP 164/92
[2018-07-17 16:00] VITALS: BP 179/105
[2018-07-17 20:00] VITALS: BP 139/70
[2018-07-18] VITALS: BP 171/51
[2018-07-18 00:05] VITALS: BP 162/84
[2018-07-18 04:00] VITALS: BP 165/93
[2018-07-18 12:37] VITALS: BP 135/72
[2018-07-18] MEDS ORDERED: METAFOLBIC TAB1 EACH PO (12:47)
[2018-07-18] MEDS ORDERED: AZITHROMYCIN 2250 MG PO (12:49)
[2018-07-18] MEDS ORDERED: CEFDINIR300 MG PO (12:50)
== END 2018-07-18 14:10 | DRG 177 ==
LOC: M.ERS 10:33 → M.2W 13:21 → M.TBA-ER 13:21 → M.2W 14:56
PROVIDERS: Personal Emergency Response Attendant; Physician Assistant; ADMIT Internal Medicine
DX: J15.6 Pneumonia due to other Gram-negative bacteria (principal); I50.21 Acute systolic (congestive) heart failure; N17.9 Acute kidney failure, unspecified; I11.0 Hypertensive heart disease with heart failure; I48.91 Unspecified atrial fibrillation; E87.6 Hypokalemia; D50.9 Iron deficiency anemia, unspecified; F29 Unspecified psychosis not due to a substance or known physiological condition

== ENCOUNTER → 2018-07-22 | Outpatient (CLI) | payer OTHER ==
[~2018-07-22] MED LIST changes: +AZITHROMYCIN 2250 MG PO; +CEFDINIR300 MG PO; +METAFOLBIC TAB1 EACH PO; +TOPROL XL100 MG PO
== END ==
LOC: M.RAD 10:22
DX: J18.9 Pneumonia, unspecified organism (principal)

== ENCOUNTER 2018-08-16 12:38 | Emergency (ER) | payer OTHER ==
[~2018-08-16] VITALS: Ht 182.9 cm; Wt 60.8 kg
[2018-08-16] MEDS ORDERED: IRON325 PO (13:03)
[2018-08-16] MEDS ORDERED: KEFLEX500 M1 PO (14:18)
[2018-08-16 14:35] VITALS: BP 150/78
== END 2018-08-16 14:37 | disposition home or self-care (01) ==
LOC: M.ERS 12:38
DX: S63.286A Dislocation of proximal interphalangeal joint of right little finger, initial encounter (principal); I48.91 Unspecified atrial fibrillation; I11.0 Hypertensive heart disease with heart failure; I50.9 Heart failure, unspecified; X58.XXXA Exposure to other specified factors, initial encounter; Y93.89 Activity, other specified; Y92.89 Other specified places as the place of occurrence of the external cause; Y99.8 Other external cause status

== ENCOUNTER 2018-08-20 13:43 | Inpatient (IN) | payer OTHER ==
[~2018-08-20] VITALS: Ht 182.9 cm; Wt 65.6 kg
[~2018-08-20 13:43] MED LIST changes: +KEFLEX500 M1 PO
[2018-08-20 13:59] VITALS: BP 116/46
[2018-08-20 14:31] LABS: HEMATOCRIT 31.9 % (42.0-52.0); HEMOGLOBIN 9.4 gm/dL (14.0-18.0); MCH 20.3 pg (26.0-34.0); MCHC 29.5 g/dL (28.0-37.0); MCV 68.6 fL (80.0-100.0); MPV 9.1 fl. (7.2-11.1); NUCLEATED RBCS 0 /100WBC; PLATELET COUNT* 238 thou/uL (150-400); RBC 4.65 mil/uL (4.50-6.00); RDW-CV 19.6 % (10.5-14.5); WBC 5.2 thou/uL (4.0-11.0)
[2018-08-20 14:34] LABS: APTT 29.2 Seconds (25.0-31.3); INR 1.3; PROTIME 13.4 Seconds (9.20-11.50)
[2018-08-20 14:38] LABS: CALCIUM 8.9 mg/dL (8.5-10.1); CREATININE 1.8 mg/dL (0.6-1.3); POTASSIUM 3.7 mmol/L (3.5-5.1)
[2018-08-20 14:43] LABS: ALBUMIN 3.3 g/dL (3.4-5.0); TOTAL BILIRUBIN 0.7 mg/dL (<0.1-1.0); TOTAL PROTEIN 7.2 g/dL (6.4-8.2)
[2018-08-20 14:56] LABS: ABSOLUTE EOSINOPHILS 0.1 thou/uL (0.0-0.7); ABSOLUTE LYMPHOCYTES 0.8 thou/uL (0.8-5.3); ABSOLUTE MONOCYTES 0.4 thou/uL (0.0-1.2); ABSOLUTE NEUTROPHILS 3.8 thou/uL (1.6-8.1)
[2018-08-20 14:57] LABS: PLATELET ESTIMATE ADEQUATE
[2018-08-20 14:58] LABS: HYPOCHROMASIA 3+; TARGET CELLS 1+; TOXIC GRANULATION 1+
[2018-08-20 14:59] LABS: ANISOCYTOSIS 2+; MICROCYTES 2+
[2018-08-20 17:00] LABS: URINE BILIRUBIN NEGATIVE (Negative); URINE BLOOD NEGATIVE (Negative); URINE CLARITY CLEAR; URINE COLOR YELLOW; URINE GLUCOSE-RANDOM NEGATIVE (Negative); URINE KETONES NEGATIVE (Negative); URINE LEUKOCYTES-REFLEX 1+ (Negative); URINE NITRITE-REFLEX NEGATIVE (Negative); URINE PROTEIN 1+ (Negative); URINE SPECIFIC GRAVITY 1.025 (1.005-1.030); URINE UROBILINOGEN 0.2 E.U./dl (0.2-1.0)
[2018-08-20 17:09] LABS: BACTERIA-REFLEX None Seen /HPF (None Seen); CASTS None Seen /LPF (None Seen); CRYSTALS None Seen /LPF (None Seen); SQUAMOUS NONE SEEN /LPF (0-3); URINE RBC None Seen /HPF (0-2); URINE WBC-REFLEX None Seen /HPF (0-5)
[2018-08-20 17:10] VITALS: BP 154/66
--- NOTE | 2018-08-20 17:10 | NUR ---
ADMIT NOTE - PT ADMITTED TO [facility] FROM ER VIA CART. PT ABLE TO WALK 4-5 STEPS FROM CART TO BED. PT IS AGITATED AND FRUSTATED WITH BEING ADMITTED. PT FIXATED ON IRON THERAPY REPLACEMENT. PT ALERT/ORIENTED X 2, FORGETFUL AND STANDING ROCK. BED ALARM ON. 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 WILL CONTINUE TO MONITOR.
[2018-08-20 17:14] VITALS: BP 154/66
[2018-08-20 20:00] VITALS: BP 157/85
[2018-08-21] VITALS: BP 155/72
[2018-08-21 04:00] VITALS: BP 169/89
--- NOTE | 2018-08-21 06:10 | NUR ---
ASSUMED ACRE OF PT AFTER REPORT AT 1930. PT A&OX1-2. CONFUSED, FORGETFUL & IMPULSIVE. VSS. PHYSICAL ASSESSMENT COMPLETED AND CHARTED. PT ON RA WITH 95% O2 SAT. PT TRACING AFIB ON TELE. PT REQUESTED FOR SLEEPING PILL- DR LOVE INFORMED WITH NEW ORDERS. PT IS RESTLESS, TRIED TO HIT STAFF, REMOVING CHIEF CLIENT OFFICER- PROVIDER INFORMED WITH NEW ORDER. PT O2 SAT DROPPED TO 85%, EXPIRATORY WHEEZING NOTED- HOOKED TO O2 AT 2L NC WITH 95% O2 SAT. HOURLY ROUNDING OBSERVED. CALL LIGHT WITHIN REACH. BED IN LOW POSITION. BED ALARM ON.
[2018-08-21 07:00] VITALS: BP 164/75
[2018-08-21 11:38] VITALS: BP 153/84
--- NOTE | 2018-08-21 12:43 | NUR ---
ATTEMPTED TO MEET WITH PT, DROWSY AND CONFUSED. CALL TO NIECE/CYNTHIA LAMAS WHO IS DPOA TO DISCUSS HOME SITUATION/DC PLANNING. COPY OF DPOA ON CHART. PT LIVES ALONE IN HOUSE, NIECE/CYNTHIA AND PT'S SISTER/STEVE LIVE NEXT DOOR. PT WAS HOSPITALIZED LAST MONTH AND WENT TO [facility] AND STAYED FOR 2 WEEKS. HAS HAD INTERIM HH SINCE. PT USES WALKER OR CANE. NIECE AND SISTER CHECK ON PT SEVERAL TIMES A DAY. CYNTHIA STATES HE IS A 'SLOB', THAT THEY CLEAN AND GO BACK THE NEXT DAY AND HOUSE IS THE SAME IT WAS PRIOR TO CLEANING. THAT HE HAD A FALL AND DIDN'T TELL THEM, INJURED HIS HAND. CYNTHIA TOOK PT TO PCP YESTERDAY AND THE LPN CMA SUGGESTED HOSPICE. CYNTHIA STATED PT WAS IN AGREEMENT, THEY WOULD LIKE TO MEET WITH ONE. [facility] HAS A HOSPICE, OFFERED THAT AND CYNTHIA WAS IN AGREEMENT, WOULD LIKE TO MEET WITH THEM AROUND 3PM TODAY. CALLED AND FAXED REFERRAL TO [facility]. LIZ TO MEET HERE WITH PT/FAMILY AT 3PM. CYNTHIA STATED SHE DOESN'T WANT PT TO GO TO [facility], THAT HE'D RETURN HOME OR TO THEIR HOME AT [place]. WILL FOLLOW [facility] [phone] FAX [phone]
[2018-08-21 13:52] LABS: CALCIUM 8.9 mg/dL (8.5-10.1); CREATININE 2.1 mg/dL (0.6-1.3); POTASSIUM 4.4 mmol/L (3.5-5.1)
[2018-08-21 14:03] LABS: MAGNESIUM 2.2 mg/dL (1.8-2.4)
--- NOTE | 2018-08-21 14:25 | 2DMMODE ---
[facility] [address] [place] [address] 2 D/M-MODE ECHOCARDIOGRAM Name: RENEE LAMAS Room: [address] ADM IN [facility]#: [id number] Admission: 08/20/18 Attend Phys: Osito Bellamy Discharge: Date of : 34 Date of Service: 08/21/18 1424 Report #: [id number] THIS REPORT FOR: //name// APPROVED REPORT Study performed: 08/21/2018 10:58:33 EXAM: Limited 2D Echocardiogram Patient Location: In-Patient Room #: [facility] Status: routine BSA: 1.79 HR: 89 bpm BP: 164/75 mmHg Rhythm: NSR Other Information Study Quality: Good Indications Dyspnea Limited to assess LV function. Hospice being considered Left Ventricle The left ventricle is normal size. Regional wall motion abnormalities are noted with distal septal and anteroapical akinesis. Borderline concentric left ventricular hypertrophy. Left ventricular ejection fraction is moderately decreased. LVEF is 35%. Right Ventricle The right ventricle is normal size. The right ventricular systolic function is normal. Atria Left atrium is mildly dilated. Right atrium is mildly dilated. Aortic Valve Mild aortic valve sclerosis. Mitral Valve There is mitral annular calcification. Mild mitral regurgitation. Tricuspid Valve The tricuspid valve is normal in structure. Mild tricuspid [address] [address] 2 D/M-MODE ECHOCARDIOGRAM Name: RENEE LAMAS Room: [address] IN M.R.#: [id number] Admission: 08/20/18 Attend Phys: Osito Bellamy Discharge: Date of : 34 Date of Service: 08/21/18 142 Report #: [id number] regurgitation. Pulmonic Valve The pulmonary valve is normal in structure. Great Vessels The aortic root is normal in size. IVC is normal in size and collapses >50% with inspiration. Pericardium There is no pericardial effusion. Left pleural effusion. <Conclusion> The left ventricle is normal size. Borderline concentric left ventricular hypertrophy. Left ventricular ejection fraction is moderately decreased. LVEF is 35%. The right ventricle is normal size. Left atrium is mildly dilated. Right atrium is mildly dilated. Mild aortic valve sclerosis. There is mitral annular calcification. Mild mitral regurgitation. The tricuspid valve is normal in structure. Mild tricuspid regurgitation. IVC is normal in size and collapses >50% with inspiration. There is no pericardial effusion. Left pleural effusion. Regional wall motion abnormalities are noted with distal septal and anteroapical akinesis. <ELECTRONICALLY SIGNED> By: Angus Florence MD, [facility] 08/21/18 1424 1424 1424 Angus Florence MD, FACC /INF
--- NOTE | 2018-08-21 18:48 | NUR ---
vss, ASSUMED CARE THIS AM, ASSESSMENT PERFORMED AND CHARTED, FALL PRECAUTIONS IN PLACE AND CALL LIGHT IN REACH, PT IS CONFUSED, IMPULSIVE, INCONT, AFIB ON MONITOR, UP WITH ONE, HE TAKES OFF MONITOR, TAKES OUT IV, CLIMBS OUT OF BED, PT TAKES OF OXYGEN HE WEARS NC 3L, PT HAS BEEN A DNR, HE IS NOT PROGRESSING WELL. HOURLY ROUNDS COMPLETED, WILL FOLLOW WITH PLAN OF CARE
[2018-08-21 20:20] VITALS: BP 166/64
[2018-08-22] VITALS: BP 145/63
[2018-08-22 04:48] VITALS: BP 150/71
--- NOTE | 2018-08-22 04:49 | NUR ---
PT CARE ASSUMED AT 1930. SAT MAINTAINED IN 2L NC. PT IS IMPULSIVE AND CONFUSED. TRIES TO PULL THE IV LINE AND GOWN. CALL LIGHT WITHIN REACH AND BED IN LOW POSITION. PT IS INCONTINENT OF BLADDER. AFIB WITH PVCS ON TELE MONITOR.
[2018-08-22 08:00] VITALS: BP 150/65
--- NOTE | 2018-08-22 11:15 | NUR ---
Nutrition: Pt is impulsive, confused. Admitted for anemia. H/o: SBO/bowel resection, HTN, CHF, afib. Seen for BMI <18.5 Current wt 133# is stable for at least one month. Regular diet order. Abumin 3.3. GOALS: >75% of meals consumed, order oral supplement if meal intake decreases to <50%. Mild risk.
[2018-08-22 11:39] LABS: HEMATOCRIT 38.2 % (42.0-52.0); HEMOGLOBIN 11.2 gm/dL (14.0-18.0); MCH 20.5 pg (26.0-34.0); MCHC 29.2 g/dL (28.0-37.0); MCV 70.1 fL (80.0-100.0); MPV 9.1 fl. (7.2-11.1); RBC 5.46 mil/uL (4.50-6.00); RDW-CV 20.4 % (10.5-14.5); WBC 9.5 thou/uL (4.0-11.0)
[2018-08-22 12:00] VITALS: BP 140/65
--- NOTE | 2018-08-22 13:37 | NUR ---
CONTINUE TO FOLLOW. MET WITH PT, NIECE/CYNTHIA AND SISTER/STEVE AGAIN. THEY VOICED CONCERN ABOUT HOW WEAK PT IS. DR LOVE MET WITH THEM TO DISCUSS OPTIONS AGAIN. CYNTHIA IS STILL INTERESTED IN HOSPICE AT HOME BUT STEVE WOULD LIKE TO SEE PT GET STRONGER. DISCUSSED SNF, PT HAD STAY IN NOV AT [facility]. THEY WOULD CONSIDER IT AGAIN IF PT QUALIFIES. EXPLAINED THAT WOULD HAVE TO HAVE THERAPY EVALS AND PT WOULD HAVE TO QUALIFY AND HAVE INSURANCE AUTH IT. IT IS A HOLIDAY WEEKEND AND UNSURE HOW QUICKLY COULD GET AUTH. ALSO TALKED ABOUT HOSPICE AT HOME OR IN FACILITY. CYNTHIA IS STILL OPPOSED TO LTC AND STATED THEY WOULDN'T DO THAT, AWARE OF COST. WOULD PREFER TO TAKE PT HOME. ALSO GAVE INFO ON PRIVATE DUTY. PLAN IS TO SEE HOW PT DOES WITH THERAPY AND DECIDE ABOUT SNF VS HOME WITH INTERIM HOSPICE
--- NOTE | 2018-08-22 14:41 | EKG ---
[place] [address] ELECTROCARDIOGRAM REPORT Name: RENEE LAMAS Room: [address] ADM IN M.R.#: [id number] Admission: 08/20/18 Attend Phys: Maricruz Hawkins Discharge: Date of : 34 Report #: [id number] THIS REPORT FOR: //name// [facility] ED Test Date: 2018-08-20 Test Time: 14:07:25 Pat Name: RENEE LAMAS Department: Room: [facility] Gender: M Sewer Tapper: : 1930 Requested By: Taya Abdi Order Number: [id number] MD: Angus Florence Measurements Intervals Champion Rate: 68 P: [place]: QRS: 18 QRSD: 84 T: 39 QT: 472 QTc: 503 Interpretive Statements Atrial fibrillation Probable LVH with secondary repol abnrm Anterior Q waves, possibly due to LVH Electronically Signed On 08-22-2018 14:41:25 PICKUP DRIVER by Angus Florence [email or web address] <ELECTRONICALLY SIGNED> By: Angus Florence MD, [facility] 08/22/18 1441 D: [id number] Angus Florence MD, FACC /EPI
[2018-08-22 16:00] VITALS: BP 126/102
--- NOTE | 2018-08-22 18:51 | NUR ---
VSS, ASSUMED CARE IN THE AM, ASSESSMENT PERFOMRED AND CHARTED, FALL PRECAUTIONS IN PLACE, CALL LIGHT IN REACH,, PT IS CONFUSED AND IMPULSIVE, ON 2L NC BUT TAKES OF O2, HE IS AFIB ON THE MONITOR, UP WITH ONE TO BSC, DENIES ANY PAIN AT THIS TIME, PT GOAL IS TO SIT UP IN CHAIR, GOAL MET AND WAS UP IN CHAIR FOR LUNCH, PT IS SET UP HELP FOR MEALS. HOURLY ROUNDS COMPLETED AND WILL FOLLOW WITH PLAN OF CARE.
[2018-08-22 20:00] VITALS: BP 94/56
[2018-08-23] VITALS: BP 129/56
[2018-08-23 04:00] VITALS: BP 125/71
[2018-08-23 08:00] VITALS: BP 147/76
--- NOTE | 2018-08-23 08:00 | NUR ---
ASSUMED CARE OF PT ASSESSED AND DOCUMENTED. PT IS ON CARDIAC MONITER TRACING AFIB HR 89. PT IS ALERT TO SELF AND HAS NO C/O PAIN. VSS WNL. PT IS AFEBRILE. HE IS ON ROOM AIR SAT AT 95%. LUNGS ARE WHEEZY. PT HAS A FX FINGER. HE HAS A RED BOTTOM. BED IS IN LOW POSITION CALL LIGHT IS IN REACH. WM.
--- NOTE | 2018-08-23 08:02 | NUR ---
ASSUMED PT CARE AT 1930. PT ALERT TO SELF. SLEEPY BUT WAS AROUSABLE FOR MEDS. FREQUENTLY FIDGITING AND RESTLESS IN BED. BENADRYL AND PRN SLEEP MED GIVEN. PT WAS ABLE TO REST THROUGH MOST OF NIGHT- AWAKE INTERMITTENTLY. REDNESS NOTED ON BOTTOM. NO OPEN WOUNDS. FREQUENT TURNS AND REPOSITIONING. CALL LIGHT IN REACH. HOURLY ROUNDING FOR SAFETY.
[2018-08-23 12:00] VITALS: BP 130/47
[2018-08-23 16:00] VITALS: BP 115/42
--- NOTE | 2018-08-23 16:03 | NUR ---
PT WAS UP TO BEDSIDE CHAIR THIS SHIFT. HE ALSO STATED HE NEEDED TO URINATE. GAVE PT A URINAL AND HE WAS ABLE TO USE IT STANDING UP. HE IS WEAK WHEN HE STANDS. HE DID DRINK SOME WATER FOR ME TODAY AND CONT TO ENCOURAGE THIS. HE SPIT THE WATER ON THE FLOOR WHILE THERAPY WAS IN THE ROOM. PT WAS TALKATIVE AFTER LUNCH AND SPOKE ABOUT [place] DURING THE WAR. HE DID C/O BACK PAIN AND GAVE 2 TYLENOL. SENT YOU CALL TO DR FOR SOMETHING STRONGER WHEN NEEDED. PT BACK IN BED RESTING. HOURLY ROUNDING COMPLETE.
[2018-08-24] VITALS: BP 147/97
--- NOTE | 2018-08-24 02:44 | NUR ---
PT CARE ASSUMED AT 1930. SAT MAINTAINED IN RA IN THE BEGINNING OF THE SHIFT. PT ALERT TO PERSON, IMPULSIVE AT TIMES. SAT DECREASED TO 89% AT 0145, PT SOUNDED COARSE AND WHEEZY, INFORMED DR. LUCAS GOT AN ORDER FOR C-XRAY. ORDER FOLLOWED. SAT 96% IN 2L NC. CALL LIGHT WITHIN REACH AND BED IN LOW POSITION. AFIB RUNNING ON TELE MONITOR.
[2018-08-24 04:00] VITALS: BP 156/88
[2018-08-24 08:00] VITALS: BP 168/84
--- NOTE | 2018-08-24 08:00 | NUR ---
ASSUMED CARE OF PT ASSESSED AND DOCUMENTED. PT IS ON CARDIAC MONITER TRACING AFIB HR 87. HE STATES HIS NAME AND BIRTHDAY. PT USED THE URINAL.PT IS AFEBRILE. HE IS ON ROOM AIR SAT 94%. PT HAS AUDIBLE WHEEZING. HE STATES NO PAIN. PT IS ON FALL PRECAUTIONS PER FACILITY PROTOCOL. BED IS IN LOW POSITION CALL LIGHT IS IN REACH. WM.
[2018-08-24 12:00] VITALS: BP 128/66
[2018-08-24 15:46] VITALS: BP 155/93
--- NOTE | 2018-08-24 16:16 | NUR ---
PT HAS NOT BEEN COMMUNICATIVE HE WAS YESTERDAY. HE HAS NOT USED HIS URINAL BUT ONCE. HE HAS NOT USED HIS CALL LIGHT. PT HAS HAD SEVERAL BED CHANGES. PT WAS MOANING AND STATED HIS BACK WAS HURTING. GAVE PT 1 HYDROCODONE PO. PULMONARY HAS BEEN CONSULTED AND SHOULD BE HERE THIS AFTERNOON. PT HAS NOT HAD A GOOD APPETITE TODAY AND HAD EATEN VERY LITTLE.
[2018-08-24 20:00] VITALS: BP 148/99
[2018-08-25 00:09] VITALS: BP 153/89
[2018-08-25 04:41] VITALS: BP 154/94
--- NOTE | 2018-08-25 05:02 | NUR ---
Pt resting in bed. Remains on 2L NC. AM labs to be reviewed. Pt has had some incontinence. Pt to have a swallow eval today.
[2018-08-25 05:09] LABS: HEMATOCRIT 36.2 % (42.0-52.0); HEMOGLOBIN 10.9 gm/dL (14.0-18.0); MCH 21.1 pg (26.0-34.0); MCV 70.4 fL (80.0-100.0); MPV 8.8 fl. (7.2-11.1); NUCLEATED RBCS 0 /100WBC; PLATELET COUNT* 228 thou/uL (150-400); RBC 5.15 mil/uL (4.50-6.00); RDW-CV 21.3 % (10.5-14.5); WBC 5.4 thou/uL (4.0-11.0)
[2018-08-25 06:58] LABS: ABSOLUTE LYMPHOCYTES 0.4 thou/uL (0.8-5.3); ANISOCYTOSIS 2+; HYPOCHROMASIA 2+; PLATELET ESTIMATE ADEQUATE
--- NOTE | 2018-08-25 07:11 | CON ---
[address] [address] CONSULTATION Name: RENEE LAMAS Room: [address] IN .R.#: [id number] Admission: 08/20/18 Attend Phys: Maricruz Hawkins Discharge: Date of : 34 Report #: [id number] THIS REPORT FOR: //name// CC: Leila Bellamy DATE OF SERVICE: 08/24/2018 REQUESTING PHYSICIAN: Dr. Salgado INDICATION FOR CONSULTATION: Shortness of breath HISTORY OF PRESENT ILLNESS: This is an 88-year-old gentleman. His past medical history includes a history of congestive heart failure. His left ventricular ejection fraction has been around 35%. The patient at this time is fairly drowsy. He is telling me that he smoked for a long period of time in the past. I do not see documentation of smoking in the past though on the records, I am not certain if the patient is understanding my questions correctly. He recently received hydrocodone for pain. The patient has had a recent admission previously in July as well and now again presented on 08/20. The presentation was with shortness of breath. The patient since then has been treated with diuretics. He has also received Omnicef as well as Zithromax. The patient has ongoing shortness of breath, was reported to be audibly wheezing earlier today. At this time, he appears to be fairly lethargic. I do not feel that he can safely take orally at this time. I am told that he otherwise is fully awake, but he is drowsy now because he was recently administered hydrocodone for some pain complaints. The patient is unable to provide further history or review of systems at this time. PAST MEDICAL HISTORY: Congestive heart failure, left ventricular ejection fraction has been in the range of 35% on his previous as well as current echo without significant elevation in right heart pressures, mild renal insufficiency, baseline creatinine appears to be around 1.3 or 1.4 and paroxysmal atrial fibrillation. He is not on long-term anticoagulation, small-bowel obstruction in the past, hypertension, dislocation of the phalanx of hand and peripheral vascular disease. SOCIAL HISTORY: The patient says that he smoked in past. See further discussion above. This, however, is not documented on the records previously. I am not fully clear if he is, in fact, understanding the questions at this time. No known history of heavy alcohol use or illegal drug use. CURRENT MEDICATIONS: List in [facility] reviewed. HOME MEDICATIONS: List also in [facility] [place] [address] CONSULTATION Name: RENEE LAMAS Room: [address]#: [id number] Admission: 08/20/18 Attend Phys: Maricruz Hawkins Discharge: Date of : 34 Report #: [id number] FAMILY HISTORY: There is no pertinent family history documented in the records. The patient is unable to provide family history. PHYSICAL EXAMINATION: GENERAL: He is markedly drowsy, but he is arousable. As mentioned, he recently received hydrocodone. When aroused, he is still fairly lethargic. He was unable to answer orientation questions. VITAL SIGNS: Has a pulse of 79 and a blood pressure of 155/93 on 2 liters nasal cannula. He has been maintaining O2 saturation in the low 90s. Respiratory rate mildly elevated to around 22. The patient has a temperature of 36.4. He does appear emaciated. His body mass index is 19.6. HEENT: Head is normocephalic and atraumatic. Pupils are equal and reactive. There is no throat erythema. NECK: Does not show raised JVP, asymmetry, mass or lymph nodes. CHEST: Symmetrical expansion on inspection and palpation. On auscultation, breath sounds are bilaterally equal, decreased, expirations are prolonged. There are scattered expiratory wheezes heard. HEART: Irregular. No murmur. ABDOMEN: Soft and nontender. EXTREMITIES: Lower extremities show no edema, no calf tenderness. SKIN: Dry and intact. NEUROLOGICAL: He does move all extremities bilaterally equally and spontaneously with no focal deficit identified. LABORATORY DATA: The patient's chest x-ray from 2 days ago shows increase in pulmonary vascular congestion. Chest x-ray today shows improvement in pulmonary vascular congestion, some bilateral opacities suspicious of infiltrates are noted, though there are no large infiltrates identified. The patient may have some chronic changes as well. The patient's CBC as well as chemistries are in [facility]. These are reviewed. The patient's creatinine is above his baseline at 1.9 today. He did receive an extra dose of IV Lasix today. The patient's coagulation studies and urinalysis also in [facility] reviewed. ASSESSMENT AND PLAN: 1. Acute respiratory insufficiency. The patient does have congestive heart failure. His chest x-ray from a couple of days ago does show congestive heart failure. This, however, is improved now on the new chest x-ray, the patient, however, remained short of breath. He does appear to be actively bronchospastic at the time of my examination, and he is also high risk for aspiration. 2. Chronic systolic congestive heart failure with left ventricular ejection fraction of 35%. 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 Despite this, he does not appear to be significantly fluid overloaded now. As mentioned, he was fluid overloaded on the chest x-ray 2 days ago. 3. Bronchospasm. He does appear to be actively wheezing now unclear as to whether the patient has smoked in the past. Regardless, at this time, [place] [address] CONSULTATION Name: RENEE LAMAS Room: [address] IN [facility].#: [id number] Admission: 08/20/18 Attend Phys: Maricruz Hawkins Discharge: Date of : 34 Report #: [id number] that we should give him Solu-Medrol and the same is ordered. He is already on DuoNeb and the same is continued considering higher than average risk of GI bleeding with the use of corticosteroids, I did order Protonix for GI prophylaxis. Suggest watching glucoses as well. 4. Pulmonary infiltrates. Chest x-ray findings are vague, I feel there are some small infiltrates present. I do not see any large infiltrates. As mentioned, there is pulmonary vascular congestion as well, which has now improved compared with 2 days ago. Suggest obtaining a CT chest without contrast to further evaluate the chest x-ray findings. 5. Acute renal insufficiency. Suggest watching creatinine closely. We do need to run him on the yolk spray drier side concerning congestive heart failure; however, his creatinine is above his baseline, which is around 1.3 or 1.4, which needs to be watched as well. 6. Dysphagia. The patient is fairly drowsy. I do not feel that he can safely swallow at this time, I am told that this is related to hydrocodone he received recently and that otherwise, he is fully awake. If he is fully awake, then he could be allowed orally if he is also fully sitting up, but I do recommend also obtaining a video swallow tomorrow to assess further. 7. Paroxysmal atrial fibrillation. Note that he has not been on long-term anticoagulation, administration of subcutaneous heparin in the prophylactic dose is a consideration, I would defer evaluation of risks versus benefits of this to the primary service. 8. Altered mental status. See discussion as above, but the patient's nurse does state that other than getting the hydrocodone now, he has also been otherwise more lethargic than yesterday. Therefore, when he goes on for a CT head, I will recommend obtaining a CT of the head as well. 9. Diet. He is currently on a regular diet. I added sodium restriction. Thanks for this consultation. <ELECTRONICALLY SIGNED> By: Ethan Mckeon MD 08/25/18 0711 1718 [id number] Damon MD /nt
[2018-08-25 08:45] VITALS: BP 114/68
--- NOTE | 2018-08-25 08:45 | NUR ---
ASSUMED PT. CARE AND RECEIVED REPORT AT 0730. PT A/OX3, [place] AND SPEECH HARD TO UNDERSTAND AT TIMES. ON 2L NC @ 96%. VSS, MONITOR ON TRACING AFIB. PT. DENIES CURRENT PAIN/SOB. ASSISTED X 1 TO CHAIR FOR BREAKFAST. ASKING FOR CUP OF ICE FOR ROOTBEER. FALL PRECAUTIONS IN PLACE. WILL CONTINUE WITH PLAN OF CARE.
[2018-08-25 11:15] VITALS: BP 104/39
--- NOTE | 2018-08-25 11:26 | NUR ---
SPOKE WITH PT.AND HIS SISTER STEVE. KEVYNCYNTHIA MAYEN, IS SICK TODAY. DISCUSSED SNF VS.HOSPICE. STEVE SAID SHE THINKS THEY ARE LEANING TOWARDS SNF TO START WITH. PT.VERY [place]-SPARKS. SHE SAID HE HAS ALREADY SPENT 2 WEEKS AT [facility] AFTER THANKS. STEVE SAID PT.WAS NOT TOO CRAZY ABOUT THE PLACE BUT SHE AND HER DAUGHTER THOUGHT IT WAS VERY NICE AND CLEAN. LEFT MESSAGE FOR [facility] AND FAXED REFERRAL TO HER FOR SAT OR .
[2018-08-25 15:34] VITALS: BP 96/61
--- NOTE | 2018-08-25 19:07 | NUR ---
PT. UP TO RECLINER FOR ALL MEALS TODAY AND TO VISIT WITH FAMILY X2. REMAINS A/OX3, BUT CONTINUES TO HAVE SOME CONFUSION AT TIMES. SPEECH CLEARER AT TIMES WELL. POOR APPETITE WITH MINIMAL INTAKE AT MEALS. PT. WILL DRINK GOOD AMOUNTS OF ROOTBEER THAT FAMILY BRINGS IN. HOURLY ROUNDING COMPLETED THROUGH OUT THE DAY FOR PT. SAFETY.
[2018-08-25 20:20] VITALS: BP 115/62
[2018-08-26] VITALS: BP 153/99
[2018-08-26 05:00] VITALS: BP 116/95
--- NOTE | 2018-08-26 05:08 | NUR ---
PT CARE ASSUMED AT 1930. SAT MAINTAINED IN 2L NC. ORIENTED TO SELF AND CONFUSED. PT REPLIES BACK TO THE CONVERSATION. SLEPT FOR MOST OF THE NIGHT. PT IS INCONTINENT OF BLADDER. BED IN LOW POSITION AND CALL LIGHT WITHIN REACH. HOURLY ROUNDING DONE FOR PT SAFETY. PT PULLED HIS IV OUT, NEW IV LINE INSERTED.
[2018-08-26 08:16] VITALS: BP 162/79
--- NOTE | 2018-08-26 08:30 | NUR ---
RECEIVED REPORT. ASSUMED CARE OF PT AT 0730. VSS. CARDIAC MONITORING IN PLACE AFIB. AM ASSESSMENT AND VITALS COMPLETED CHARTED. PT IS AROUSABLE. BUT PT IS CONFUSED. PT ON 2L PER NC. PT IS PALE. PT ASSISTED UP TO EAT FOR BREAKFAST AND FED BY YARN MERCERIZER OPERATOR HELPER. PT IS ASPIRATING BREAKFAST THIS AM. PT IN NO APPARENT PAIN THIS AM. IV SALINE LOCKED. PT INCONTINENT OF URINE. DISCONTINUED FEEDING PT THIS AM DUE TO ASPIRATING. CALL LIGHT IS WITHIN REACH. WILL CONTINUE TO MONITOR.
--- NOTE | 2018-08-26 11:10 | NUR ---
PT'S FAMILY AT BEDSIDE. PT IS CONFUSED, RESTLESS, AND AGGITATED. PT SITTING IN BED WITH LEGS OVER RAILINGS. PT'S BEDDING AND GOWN CHANGED BY THIS RN AND WORKERS COMPENSATION CLAIMS SUPERVISOR. PT'S FAMILY UPDATED ON PT STATUS INCLUDING WITNESSED ASPIRATION THIS MORNING. AND ORDERS FROM PULMONARY TO KEEP PT NPO INCLUDING AM MEDS. PT'S FAMILY APPEARS TO BE FRUSTRATED/UNHAPPY. PT'S FAMILY REPORTS THAT PT WAS "FINE UNTIL LAST SATURDAY WHEN THEY GAVE HIM HALDOL." REASSURANCE AND EDUCATION GIVEN REGARDING PT'S CURRENT CLILNICAL STATUS AND WHAT ASPIRATION MEANS. WILL CONTINUE TO MONITOR.
[2018-08-26 11:54] VITALS: BP 132/67
--- NOTE | 2018-08-26 16:50 | NUR ---
VSS. CARDIAC MONITORING IN PLACE AT TIMES AFIB. PT IS NOT PROGRESSING TOWARDS GOALS. PT VERY RESTLESS, AGGITATED, PULLING OFF GOWN, WEB PRODUCTION DESIGNER, AND BLANKETS. PT'S O2 INCREASED TO 3L PT WAS ONLY 88% ON 2L. PT REMIANS CONFUSED AND COMBATIVE WITH NURSING CARE. PT INCONTIENT MULTIPLE TIMES THIS SHIFT. PT REPOSITIONED FREQUENTLY BY NURSING STAFF AND BY SELF. PT'S FAMILY REMAINS INFORMED REGARDING PT'S CURRENT CONDITION AND COGNITION. ALL QUESTIONS ANSWERED AT THIS TIME. CALL LIGHT IS WITHIN REACH. BED ALARM ON FOR PT SAFETY. WILL CONTINUE TO MONITOR FOR DURATION OF SHFIT.
[2018-08-26 20:40] VITALS: BP 138/65
[2018-08-27 00:13] VITALS: BP 151/92
--- NOTE | 2018-08-27 05:05 | NUR ---
PT CARE ASSUMED AT 1930. SAT MAINTAINED IN 3L NC. PT IS RESTLESS, AGITATED, UNCOPERATIVE AND INPULSIVE, INFORMED DR. GRIGSBY, RECEIVED ORDER FOR KYUNG, GIVEN PER EMAR AND CHARTED. PT CALMED DOWN FOR SOME HOURS AFTER THAT. TRIES TO PULL OUT THE IV LINE, TAKES OUT HIS GOWN AND CHEST LEADS. INCONTINENT. SPEECH DIFFICULT TO UNDERSTAND. HOURLY ROUNDING DONE FOR PT SAFETY. DIFFICULT TO VITAL SIGNS SINCE THE PT IS MOVING TOO MUCH.
[2018-08-27 05:56] VITALS: BP 96/61
[2018-08-27 08:00] VITALS: BP 154/91
[2018-08-27 12:11] VITALS: BP 153/88
--- NOTE | 2018-08-27 12:34 | NUR ---
CONTINUE TO FOLLOW. PT RESTLESS AND CONFUSED TODAY, NPO. DISCUSSED WITH DRS. RECOMMENDATION IS FOR HOSPICE, POSSIBLE HOSPICE HOUSE. MET WITH PT'S FAMILY, (NIECES AND SISTER) THEY ARE IN AGREEMENT WITH HOSPICE HOUSE AND WOULD LIKE HOSPICE. CALLED AND FAXED REFERRAL TO [facility]. SOMEONE TO BE OUT TO EVAL PT THIS AFTERNOON. ORDERS IN PLACE FOR DC IF ACCEPTED
[2018-08-27] MEDS ORDERED: MSL20MG/ML SUBLING (12:48)
[2018-08-27 12:49] VITALS: BP 153/88
[2018-08-27] MEDS ORDERED: LORAZEPAM 22 MG/1 ML SUBLING (12:49)
--- NOTE | 2018-08-27 15:39 | NUR ---
PT PROGRESSING TOWARDS GOALS THIS SHIFT. PT TRANSFERRED TO COMFORT CARE. GIVEN SL MORPHINE AND ATIVAN. PT APPEARS MORE COMFORTABLE AT THIS TIME. PT WAS TO TRANSFER TO HOSPICE HOUSE BUT WAS DENIED TODAY BECAUSE THEY REQUESTED HIS RESTLESSNESS AND AGITATION MEDICATIONS BE GIVEN IV FOR 24 HOURS PRIOR TO ARRIVAL. NEW IV OBTAINED TO [place] AND ORDERS OBTAINED FOR IV MEDICATION FOR AIR HUNGER/ AGITATION/ RESTLESSNESS. TELE DC'D. NO OTHER CONCERNS AT THIS TIME. CLWR. WCTM.
[2018-08-27 16:25] VITALS: BP 141/78
--- NOTE | 2018-08-28 02:09 | NUR ---
ASSUMED CARE OF PT AT 1900. PT WAS SEDATED AND WAS VERY COMFORTABLE. PT WAS ON COMFORT CARE AT THE BEGINNING SHIFT. BLOOD PRESSURE WAS STABLE HEART RATE WAS STABLE. RESPIRATIONS WHERE IRREGULAR BUT NOT LABORED. AT ABOUT 2345, PTS HEART RATE DROPPED DOWN TO THE 30'S. PTS DPOA CALLED IMMEDIATELY. PT AT 0005 ON 08/28/18. PTS BODY WAS PICKED UP BY [facility] AT 0210. [facility] NOTIFIED AND PT IS NOT A CANDIDATE.
== END 2018-08-28 00:05 | DRG 177 ==
LOC: M.ERS 13:43 → M.2W 16:22 → M.TBA-ER 16:22 → M.2W 17:22
PROVIDERS: Internal Medicine Critical Care Medicine; Physician Assistant; ADMIT Internal Medicine
DX: J69.0 Pneumonitis due to inhalation of food and vomit (principal); N17.0 Acute kidney failure with tubular necrosis; I50.43 Acute on chronic combined systolic (congestive) and diastolic (congestive) heart failure; J96.01 Acute respiratory failure with hypoxia; G93.40 Encephalopathy, unspecified; I48.0 Paroxysmal atrial fibrillation; I73.9 Peripheral vascular disease, unspecified; R13.10 Dysphagia, unspecified; E87.70 Fluid overload, unspecified; J44.9 Chronic obstructive pulmonary disease, unspecified; I11.0 Hypertensive heart disease with heart failure; Z66 Do not resuscitate; D50.9 Iron deficiency anemia, unspecified; F03.90 Unspecified dementia, unspecified severity, without behavioral disturbance, psychotic disturbance, mood disturbance, and anxiety; R41.0 Disorientation, unspecified; I25.5 Ischemic cardiomyopathy; Z79.82 Long term (current) use of aspirin; Z79.899 Other long term (current) drug therapy